=== PATIENT | male | born 1950 | race Caucasian/White ===

== ENCOUNTER 2016-09-03 11:15 | Emergency (ER) | payer MEDICARE, BC ==
--- NOTE | 2016-09-03 11:31 | Emergency Department Record ---
History of Present Illness - General Chief complaint: Extremity Problem Stated complaint: CELLULITIS Time Seen by Provider: 09/03/16 11:22 Source: Patient Mode of Arrival: Ambulatory Limitations: No limitations - History of Present Illness Initial comments: 66 yo male presents with redness and swelling of the right ankle and foot. This started about a week ago. He was seen in the [facility] on 08/31. He was started on Keflex and Bactrim but noted the area was expanding. PCP is Dr Parra. XR demonstrated an equivocal medial malleolus fracture on 08/31. he denies any trauma, no gout, no fevers, no significant pain with ROM. MD Complaint: Extremity pain, Extremity swelling Onset/Timin -: Days(s) Location: Right, Ankle, Foot History of Same: No Radiation: None Consistency: Constant Improves with: Nothing Worsens with: Walking, Weight bearing Associated Symptoms: Denies other symptoms - Related Data Home Medications Medication Instructions Recorded Confirmed Last Taken Atenolol [Tenormin] 50 mg PO DAILY 10/05/14 09/03/16 10/09/14 Escitalopram Oxalate [Lexapro] 20 mg PO DAILY 10/05/14 09/03/16 10/09/14 Primidone [Mysoline] 250 mg PO BID 10/05/14 09/03/16 10/09/14 Alprazolam [Xanax] 0.25 mg PO TID tab 06/21/16 09/03/16 Unknown Phenytoin Sodium Extended 200 mg PO BID cap 06/21/16 09/03/16 Unknown [Dilantin] Omeprazole Magnesium [Prilosec] 20 mg PO BID packet 08/31/16 09/03/16 Unknown Previous Rx's Medication Instructions Recorded Clindamycin HCl [Cleocin HCl] 300 mg PO QID #28 capsule 09/03/16 Allergies Allergy/AdvReac Type Severity Reaction Status Date / Time aspirin Allergy Severe PT UNSURE Verified 09/03/16 11:25 OF REACTION diphenhydramine HCl Allergy Severe DIFFICULTY Verified 09/03/16 11:25 [From BENADRYL] BREATHING NSAIDS (Non-Steroidal Allergy Severe PT UNSURE Verified 09/03/16 11:25 Anti-Inflamma OF REACTION Pyrazoles Allergy Severe PT UNSURE Verified 09/03/16 11:25 OF REACTION Salicylates * Allergy Severe PT UNSURE Verified 09/03/16 11:25 [Salicylates OF REACTION *RETIRED-01/13/16] codeine Allergy Intermediate ABDOMINAL Verified 09/03/16 11:25 PAIN Travel Screening - Travel/Exposure Within Last 30 Days Have you traveled within the last 30 days?: No Review of Systems Constitutional: Denies: Chills, Fever, Malaise, Weakness Eyes: Denies: Eye discharge, Eye pain, Photophobia, Vision change ENT: Denies: Congestion, Throat pain Respiratory: Denies: Cough, Dyspnea, Hemoptysis, Stridor, Wheezes Cardiovascular: Denies: Chest pain, Palpitations, Syncope Endocrine: Denies: Fatigue Gastrointestinal: Denies: Abdominal pain, Diarrhea, Nausea, Vomiting Genitourinary: Denies: Hematuria, Urgency Musculoskeletal: Reports: Arthralgia, Joint swelling Skin: Reports: Change in color, Rash Neurological: Denies: Headache Psychiatric: Denies: Anxiety Hematological/Lymphatic: Denies: Blood Clots, Easy bleeding, Easy bruising, Swollen glands Past Medical History - SOCIAL HISTORY Smoking Status: Never smoker Alcohol Use: None Drug Use: None - RESPIRATORY Hx Respiratory Disorders: No - CARDIOVASCULAR Hx Cardio Disorders: No - NEURO Hx Neuro Disorders: Yes Hx CVA: Yes (AVOM) Hx Seizures: Yes - GI Hx GI Disorders: No - Hx Genitourinary Disorders: No - ENDOCRINE Hx Endocrine Disorders: No - MUSCULOSKELETAL Hx Musculoskeletal Disorders: Yes Hx Arthritis: Yes (Hips) - PSYCH Hx Psych Problems: Yes Hx Anxiety: Yes Hx Depression: Yes - HEMATOLOGY/ONCOLOGY Hx Hematology/Oncology Disorders: No Family Medical History Any Significant Family History?: Yes Hx Anxiety: Children Hx Dementia: Father Hx Depression: Brother/Sister Hx Diabetes: Mother Hx Heart Disease: Mother Hx HTN: Mother, Brother/Sister Hx Kidney Disease: Mother Hx Stroke: Father Physical Exam - General General Appearance: Alert, Oriented x3, Cooperative, No acute distress Limitations: No limitations - Head Head exam: Atraumatic, Normal inspection - Eye Eye exam: Normal appearance, PERRL. negative: Periorbital swelling - ENT ENT exam: Normal exam Ear exam: Normal external inspection Nasal Exam: Normal inspection Mouth exam: Normal external inspection Teeth exam: Normal inspection Throat exam: Normal inspection - Neck Neck exam: Normal inspection, Full ROM. negative: Lymphadenopathy, Tenderness - Respiratory Respiratory exam: Normal lung sounds bilaterally. negative: Respiratory distress - Cardiovascular Cardiovascular Exam: Regular rate, Normal rhythm, Normal heart sounds - GI/Abdominal GI/Abdominal exam: Soft - Rectal Rectal exam: Deferred - exam: Deferred - Extremities Extremities exam: Pedal edema (mild swelling of the right foot and ankle, erythema, full ROM without pain of the ankle and foot, intact skin, no blisters or signs of skin breakdown.), Tenderness - Back Back exam: Denies: CVA tenderness (R), CVA tenderness (L) - Neurological Neurological exam: Alert, Oriented X3 - Psychiatric Psychiatric exam: Normal affect, Normal mood. negative: Agitated, Anxious - Skin Skin exam: Erythema (medial and lateral ankke, medial and lateral, and dorasal foot) Course Vital Signs 09/03/16 11:20 Temperature 97.3 F L Pulse Rate 75 Respiratory 20 Rate Blood Pressure 130/80 Pulse Ox 98 - Reevaluation(s) Reevaluation #1: The CBC was reviewed No acute changes 09/03/16 12:11 Reevaluation #2: Remaining labs reviewed ESR normal at 18 CRP 5.6 DC with [facility] instructions We discussed reasons to return and close follow up Tuesday with PCP 09/03/16 12:38 Medical Decision Making - Lab Data Result diagrams: 09/03/16 11:50 09/03/16 11:50 Disposition Disposition: Discharge Clinical Impression: Cellulitis Qualifiers: Site of cellulitis: extremity Site of cellulitis of extremity: lower extremity Laterality: right Qualified Code(s): L03.115 - Cellulitis of right lower limb Disposition: Home, Self-Care Condition: (1) Good Instructions: Cellulitis (ED) Additional Instructions: Avoid walking or weight bearing this Keep the leg elevated at all times Return to the ER if worse beyond the lines we marked for return Stop the Keflex and Bactrim and start the Clindamycin Motrin for mild pain Follow up as scheduled Tuesday with Dr Parra Prescriptions: Clindamycin HCl [Cleocin HCl] 300 mg PO QID #28 capsule Forms: Patient Portal Access Time of Disposition: 12:39
[2016-09-03] MEDS ORDERED: CLINDAMYCIN 600MG/50ML PREMIX 600 MG in DEXTROSE 1 BAG IV ONE (11:34)
[2016-09-03] MEDS ORDERED: CLINDAMYCIN 600MG/4ML VIAL 600 MG in 0.9 % SODIUM CHLORIDE 100ML 100 ML IV ONE (11:54)
[2016-09-03 12:01] LABS: HEMATOCRIT 40.3 % (42.0-52.0); MEAN CORPUSCULAR HEMOGLOBIN 34.3 pg (27-33); MEAN CORPUSCULAR HGB CONC 34.7 g/dl (32-36); MEAN PLATELET VOLUME 9.5 fl (7.4-10.4); PLATELET COUNT 248 K/uL (130-400); RED BLOOD COUNT 4.07 M/uL (4.40-5.70); RED CELL DISTRIBUTION WIDTH 13.9 % (11.5-14.5); WHITE BLOOD COUNT W/O DIFF 4.9 K/uL (4.2-12.2)
[2016-09-03 12:16] LABS: ANION GAP 16.6 (7-16); BLOOD UREA NITROGEN 13 mg/dL (9-20); C-REACTIVE PROTEIN 5.6 mg/dL (0.0-0.9); CARBON DIOXIDE 25.4 mmol/L (22-30); CREATININE 0.7 mg/dL (0.66-1.25); EST GLOMERULAR FILTRATION RATE > 60 ml/min; GLUCOSE,RANDOM 105 mg/dL (70-110)
[2016-09-03 12:37] LABS: ERYTHROCYTE SEDIMENTATION RATE 18 mm/hr (0-20)
== END 2016-09-03 13:05 | disposition home or self-care (01) ==
LOC: ER 11:15
DX: L03.115 Cellulitis of right lower limb (principal)
CPT/HCPCS: 80048; 84550; 85027; 85651; 86140; 96365; 99284

== ENCOUNTER 2018-04-29 13:15 | Emergency (ER) | payer MEDICARE ==
[2018-04-29 14:57] LABS: BASO % 0.4 % (0-6); EOS % 2.5 % (0-6); GRAN % 71.4 % (47-80); HEMATOCRIT 43.3 % (42.0-52.0); LYMPH % 12.4 % (16-45); MEAN CELL VOLUME 98.9 fl (81-97); MEAN CORPUSCULAR HEMOGLOBIN 34.2 pg (27-33); MEAN CORPUSCULAR HGB CONC 34.6 g/dl (32-36); MEAN PLATELET VOLUME 9.4 fl (7.4-10.4); MONO % 13.3 % (0-9); PLATELET COUNT 203 K/uL (130-400); RED BLOOD COUNT 4.38 M/uL (4.40-5.70); RED CELL DISTRIBUTION WIDTH 13.8 % (11.5-14.5); WHITE BLOOD COUNT W/O DIFF 5.2 K/uL (4.2-12.2)
[2018-04-29 15:16] LABS: BLOOD UREA NITROGEN 10 mg/dL (8-23); CREATININE 0.7 mg/dL (0.7-1.2); EST GLOMERULAR FILTRATION RATE > 60 mL/min; GLUCOSE,RANDOM 101 mg/dL (74-109); PHENYTOIN (DILANTIN) 11.6 ug/mL (10.0-20.0)
[2018-04-29 15:32] LABS: ERYTHROCYTE SEDIMENTATION RATE 12 mm/hr (0-20)
[2018-04-29] MEDS ORDERED: HYDROCODONE/APAP 5/325MG TABLET PO ONE (15:53)
--- NOTE | 2018-04-29 16:21 | Emergency Department Record ---
History of Present Illness - General Chief complaint: Extremity Problem Stated complaint: SWELLING ON RT WRIST Time Seen by Provider: 04/29/18 14:29 Source: Patient Mode of Arrival: Ambulatory Limitations: No limitations - History of Present Illness Initial comments: pt has pain and swelling in his right wrist with erythema Complaint: Extremity pain, Extremity swelling, Joint pain, Joint swelling Onset/Timin -: Days(s) Location: Right, Forearm History of Same: Yes Radiation: None Severity scale (1-10): 6 Quality: Aching Consistency: Constant, Intermittent Improves with: Nothing Worsens with: Exertion - Related Data Previous Rx's Medication Instructions Recorded Cephalexin [Keflex] 500 mg PO QID #40 cap 04/29/18 Allergies Allergy/AdvReac Type Severity Reaction Status Date / Time aspirin Allergy Severe PT UNSURE Verified 04/29/18 13:38 OF REACTION diphenhydramine HCl Allergy Severe DIFFICULTY Verified 04/29/18 13:38 [From BENADRYL] BREATHING NSAIDS (Non-Steroidal Allergy Severe PT UNSURE Verified 04/29/18 13:38 Anti-Inflamma OF REACTION Pyrazoles Allergy Severe PT UNSURE Verified 04/29/18 13:38 OF REACTION Salicylates * Allergy Severe PT UNSURE Verified 04/29/18 13:38 [Salicylates OF REACTION *RETIRED-01/13/16] codeine Allergy Intermediate ABDOMINAL Verified 04/29/18 13:38 PAIN Travel Screening - Travel/Exposure Within Last 30 Days Have you traveled within the last 30 days?: No - Travel/Exposure Within Last Year Have you traveled outside the [place] in the last year?: No - Additonal Travel Details Have you been exposed to anyone with a communicable illness?: No - Travel Symptoms Symptom Screening: None Review of Systems Reviewed: No additional complaints except as noted below Constitutional: Reports: As per HPI. Denies: Chills, Fever, Malaise, Night sweats, Weakness, Weight change Eyes: Reports: As per HPI. Denies: Eye discharge, Eye pain, Photophobia, Vision change ENT: Reports: As per HPI. Denies: Congestion, Dental pain, Ear pain, Epistaxis , Hearing loss, Throat pain Respiratory: Reports: As per HPI. Denies: Cough, Dyspnea, Hemoptysis, Stridor, Wheezes Cardiovascular: Reports: As per HPI. Denies: Arrhythmia, Chest pain, Dyspnea on exertion, Edema, Murmurs, Orthopnea, Palpitations, Paroxysmal nocturnal dyspnea, Rheumatic Fever, Syncope Endocrine: Reports: As per HPI. Denies: Fatigue, Heat or cold intolerance, Polydipsia, Polyuria Gastrointestinal: Reports: As per HPI. Denies: Abdominal pain, Constipation, Diarrhea, Hematemesis, Hematochezia, Melena, Nausea, Vomiting Genitourinary: Reports: As per HPI. Denies: Dysuria, Frequency, Hematuria, Incontinence, Retention, Testicular pain, Testicular mass, Urgency Musculoskeletal: Reports: As per HPI. Denies: Arthralgia, Back pain, Gout, Joint swelling, Myalgia, Neck pain Skin: Reports: As per HPI. Denies: Bruising, Change in color, Change in hair/ nails, Lesions, Pruritus, Rash Neurological: Reports: As per HPI. Denies: Abnormal gait, Confusion, Headache, Numbness, Paresthesias, Seizure, Tingling, Tremors, Vertigo, Weakness Psychiatric: Reports: As per HPI. Denies: Anxiety, Auditory hallucinations, Depression, Homicidal thoughts, Suicidal thoughts, Visual hallucinations Hematological/Lymphatic: Reports: As per HPI. Denies: Anemia, Blood Clots, Easy bleeding, Easy bruising, Swollen glands Past Medical History - SOCIAL HISTORY Smoking Status: Never smoker Alcohol Use: None Drug Use: None - RESPIRATORY Hx Respiratory Disorders: No - CARDIOVASCULAR Hx Cardio Disorders: No - NEURO Hx Neuro Disorders: Yes Hx CVA: Yes (AVOM) Hx Seizures: Yes (last petit 1977) - GI Hx GI Disorders: No - Hx Genitourinary Disorders: No - ENDOCRINE Hx Endocrine Disorders: No - MUSCULOSKELETAL Hx Musculoskeletal Disorders: Yes Hx Arthritis: Yes (Hips) - PSYCH Hx Psych Problems: Yes Hx Anxiety: Yes Hx Depression: Yes - HEMATOLOGY/ONCOLOGY Hx Hematology/Oncology Disorders: No Family Medical History Any Significant Family History?: Yes Hx Anxiety: Children Hx Dementia: Father Hx Depression: Brother/Sister Hx Diabetes: Mother Hx Heart Disease: Mother Hx HTN: Mother, Brother/Sister Hx Kidney Disease: Mother Hx Stroke: Father Physical Exam - General General Appearance: Alert, Oriented x3, Cooperative, Mild distress - Head Head exam: Normal inspection - Eye Eye exam: Normal appearance, PERRL, EOMI Pupils: Normal accommodation - ENT ENT exam: Normal exam, Mucous membranes moist, Normal external ear exam, Normal orophraynx Ear exam: Normal external inspection. negative: External canal tenderness Nasal Exam: Normal inspection. negative: Discharge, Sinus tenderness Mouth exam: Normal external inspection, Tongue normal Teeth exam: Normal inspection. negative: Dental caries Throat exam: Normal inspection. negative: Tonsillar erythema, Tonsillar exudate - Neck Neck exam: Normal inspection, Full ROM. negative: Tenderness - Respiratory Respiratory exam: Normal lung sounds bilaterally. negative: Respiratory distress - Cardiovascular Cardiovascular Exam: Regular rate, Normal rhythm, Normal heart sounds - GI/Abdominal GI/Abdominal exam: Soft, Normal bowel sounds. negative: Tenderness - Rectal Rectal exam: Deferred - exam: Deferred - Extremities Extremities exam: Normal inspection, Full ROM, Joint swelling, Normal capillary refill, Tenderness, Other (erythema r wrist) - Back Back exam: Reports: Normal inspection, Full ROM. Denies: Muscle spasm, Rash noted, Tenderness - Neurological Neurological exam: Alert, CN II-XII intact, Normal gait, Oriented X3 - Psychiatric Psychiatric exam: Normal affect, Normal mood - Skin Skin exam: Dry, Intact, Normal color, Warm Course Vital Signs 04/29/18 04/29/18 13:30 16:14 Temperature 97.5 F L 98.1 F Pulse Rate 52 L Pulse Rate [ 55 L Pulse Ox Probe] Respiratory 16 16 Rate Blood Pressure 147/77 Blood Pressure 140/76 [Left Arm] Pulse Ox 100 94 L - Reevaluation(s) Reevaluation #1: 04/29/18 16:20 gout is also a consideration but uric acid is only 4 and pt cant take nsaids Medical Decision Making - Lab Data Result diagrams: 04/29/18 14:45 04/29/18 14:45 Lab Results 04/29/18 04/29/18 04/29/18 Range/Units 14:45 14:45 14:45 WBC 5.2 (4.2-12.2) K/uL RBC 4.38 L (4.40-5.70) M/uL Hgb 15.0 (14.0-18.0) gm/dl Hct 43.3 (42.0-52.0) % MCV 98.9 H (81-97) fl MCH 34.2 H (27-33) pg MCHC 34.6 (32-36) g/dl RDW 13.8 (11.5-14.5) % Plt Count 203 (130-400) K/uL MPV 9.4 (7.4-10.4) fl Gran % 71.4 (47-80) % Lymphocytes % 12.4 L (16-45) % Monocytes % 13.3 H (0-9) % Eosinophils % 2.5 (0-6) % Basophils % 0.4 (0-6) % ESR 12 (0-20) mm/hr Sodium 139 (136-145) mmol/L Potassium 3.6 (3.4-4.5) mmol/L Chloride 98 (98-107) mmol/L Carbon Dioxide 31.0 H (22-29) mmol/L Anion Gap 10.0 (7-16) BUN 10 (8-23) mg/dL Creatinine 0.7 (0.7-1.2) mg/dL Estimated GFR > 60 mL/min Random Glucose 101 (74-109) mg/dL Uric Acid 4.00 (3.4-7.0) mg/dL Calcium 9.3 (8.8-10.2) mg/dL Magnesium (1.6-2.4) mg/dL Phenytoin 11.6 (10.0-20.0) ug/mL 04/29/18 Range/Units 14:45 WBC (4.2-12.2) K/uL RBC (4.40-5.70) M/uL Hgb (14.0-18.0) gm/dl Hct (42.0-52.0) % MCV (81-97) fl MCH (27-33) pg MCHC (32-36) g/dl RDW (11.5-14.5) % Plt Count (130-400) K/uL MPV (7.4-10.4) fl Gran % (47-80) % Lymphocytes % (16-45) % Monocytes % (0-9) % Eosinophils % (0-6) % Basophils % (0-6) % ESR (0-20) mm/hr Sodium (136-145) mmol/L Potassium (3.4-4.5) mmol/L Chloride (98-107) mmol/L Carbon Dioxide (22-29) mmol/L Anion Gap (7-16) BUN (8-23) mg/dL Creatinine (0.7-1.2) mg/dL Estimated GFR mL/min Random Glucose (74-109) mg/dL Uric Acid (3.4-7.0) mg/dL Calcium (8.8-10.2) mg/dL Magnesium 1.8 (1.6-2.4) mg/dL Phenytoin (10.0-20.0) ug/mL Disposition Disposition: Discharge Clinical Impression: Cellulitis of wrist Disposition: Home, Self-Care Condition: (1) Good Instructions: Cellulitis (ED) Additional Instructions: follow up with family doctor. return sooner if worse. moist heat and elevation Prescriptions: Cephalexin [Keflex] 500 mg PO QID #40 cap Quality - Quality Measures Quality Measures: N/A - Blood Pressure Screening Does Patient Have Any of the Following: Active Dx of HTN Blood Pressure Classification: Hypertensive Reading Systolic Measurement: 147 Diastolic Measurement: 77 Screening for High Blood Pressure: Patient Exclusion, Hx of HTN [G9744]
--- NOTE | 2018-04-29 16:28 | Emergency Department Record ---
History of Present Illness - General Chief complaint: Extremity Problem Stated complaint: SWELLING ON RT WRIST Time Seen by Provider: 04/29/18 14:29 Source: Patient Mode of Arrival: Ambulatory Limitations: No limitations - History of Present Illness Onset/Timin -: Days(s) Location: Right, Forearm History of Same: Yes Radiation: None Severity scale (1-10): 6 Quality: Aching Consistency: Constant, Intermittent Improves with: Nothing Worsens with: Exertion - Related Data Previous Rx's Medication Instructions Recorded Cephalexin [Keflex] 500 mg PO QID #40 cap 04/29/18 Hydrocodone/APAP 5/325Mg [[place] 1 each PO Q6H #10 tab 04/29/18 5Mg/325Mg] Allergies Allergy/AdvReac Type Severity Reaction Status Date / Time aspirin Allergy Severe PT UNSURE Verified 04/29/18 13:38 OF REACTION diphenhydramine HCl Allergy Severe DIFFICULTY Verified 04/29/18 13:38 [From BENADRYL] BREATHING NSAIDS (Non-Steroidal Allergy Severe PT UNSURE Verified 04/29/18 13:38 Anti-Inflamma OF REACTION Pyrazoles Allergy Severe PT UNSURE Verified 04/29/18 13:38 OF REACTION Salicylates * Allergy Severe PT UNSURE Verified 04/29/18 13:38 [Salicylates OF REACTION *RETIRED-01/13/16] codeine Allergy Intermediate ABDOMINAL Verified 04/29/18 13:38 PAIN Travel Screening - Travel/Exposure Within Last 30 Days Have you traveled within the last 30 days?: No - Travel/Exposure Within Last Year Have you traveled outside the [place] in the last year?: No - Additonal Travel Details Have you been exposed to anyone with a communicable illness?: No - Travel Symptoms Symptom Screening: None Review of Systems Constitutional: Reports: As per HPI. Denies: Chills, Fever, Malaise, Night sweats, Weakness, Weight change Eyes: Reports: As per HPI. Denies: Eye discharge, Eye pain, Photophobia, Vision change ENT: Reports: As per HPI. Denies: Congestion, Dental pain, Ear pain, Epistaxis , Hearing loss, Throat pain Respiratory: Reports: As per HPI. Denies: Cough, Dyspnea, Hemoptysis, Stridor, Wheezes Cardiovascular: Reports: As per HPI. Denies: Arrhythmia, Chest pain, Dyspnea on exertion, Edema, Murmurs, Orthopnea, Palpitations, Paroxysmal nocturnal dyspnea, Rheumatic Fever, Syncope Endocrine: Reports: As per HPI. Denies: Fatigue, Heat or cold intolerance, Polydipsia, Polyuria Gastrointestinal: Reports: As per HPI. Denies: Abdominal pain, Constipation, Diarrhea, Hematemesis, Hematochezia, Melena, Nausea, Vomiting Genitourinary: Reports: As per HPI. Denies: Dysuria, Frequency, Hematuria, Incontinence, Retention, Testicular pain, Testicular mass, Urgency Musculoskeletal: Reports: As per HPI. Denies: Arthralgia, Back pain, Gout, Joint swelling, Myalgia, Neck pain Skin: Reports: As per HPI. Denies: Bruising, Change in color, Change in hair/ nails, Lesions, Pruritus, Rash Neurological: Reports: As per HPI. Denies: Abnormal gait, Confusion, Headache, Numbness, Paresthesias, Seizure, Tingling, Tremors, Vertigo, Weakness Psychiatric: Reports: As per HPI. Denies: Anxiety, Auditory hallucinations, Depression, Homicidal thoughts, Suicidal thoughts, Visual hallucinations Hematological/Lymphatic: Reports: As per HPI. Denies: Anemia, Blood Clots, Easy bleeding, Easy bruising, Swollen glands Past Medical History - SOCIAL HISTORY Smoking Status: Never smoker Alcohol Use: None Drug Use: None - RESPIRATORY Hx Respiratory Disorders: No - CARDIOVASCULAR Hx Cardio Disorders: No - NEURO Hx Neuro Disorders: Yes Hx CVA: Yes (AVOM) Hx Seizures: Yes (last petit 1977) - GI Hx GI Disorders: No - Hx Genitourinary Disorders: No - ENDOCRINE Hx Endocrine Disorders: No - MUSCULOSKELETAL Hx Musculoskeletal Disorders: Yes Hx Arthritis: Yes (Hips) - PSYCH Hx Psych Problems: Yes Hx Anxiety: Yes Hx Depression: Yes - HEMATOLOGY/ONCOLOGY Hx Hematology/Oncology Disorders: No Family Medical History Any Significant Family History?: Yes Hx Anxiety: Children Hx Dementia: Father Hx Depression: Brother/Sister Hx Diabetes: Mother Hx Heart Disease: Mother Hx HTN: Mother, Brother/Sister Hx Kidney Disease: Mother Hx Stroke: Father Physical Exam - General Limitations: No limitations Course Vital Signs 04/29/18 04/29/18 13:30 16:14 Temperature 97.5 F L 98.1 F Pulse Rate 52 L Pulse Rate [ 55 L Pulse Ox Probe] Respiratory 16 16 Rate Blood Pressure 147/77 Blood Pressure 140/76 [Left Arm] Pulse Ox 100 94 L Medical Decision Making - Lab Data Result diagrams: 04/29/18 14:45 04/29/18 14:45 Lab Results 04/29/18 04/29/18 04/29/18 Range/Units 14:45 14:45 14:45 WBC 5.2 (4.2-12.2) K/uL RBC 4.38 L (4.40-5.70) M/uL Hgb 15.0 (14.0-18.0) gm/dl Hct 43.3 (42.0-52.0) % MCV 98.9 H (81-97) fl MCH 34.2 H (27-33) pg MCHC 34.6 (32-36) g/dl RDW 13.8 (11.5-14.5) % Plt Count 203 (130-400) K/uL MPV 9.4 (7.4-10.4) fl Gran % 71.4 (47-80) % Lymphocytes % 12.4 L (16-45) % Monocytes % 13.3 H (0-9) % Eosinophils % 2.5 (0-6) % Basophils % 0.4 (0-6) % ESR 12 (0-20) mm/hr Sodium 139 (136-145) mmol/L Potassium 3.6 (3.4-4.5) mmol/L Chloride 98 (98-107) mmol/L Carbon Dioxide 31.0 H (22-29) mmol/L Anion Gap 10.0 (7-16) BUN 10 (8-23) mg/dL Creatinine 0.7 (0.7-1.2) mg/dL Estimated GFR > 60 mL/min Random Glucose 101 (74-109) mg/dL Uric Acid 4.00 (3.4-7.0) mg/dL Calcium 9.3 (8.8-10.2) mg/dL Magnesium (1.6-2.4) mg/dL Phenytoin 11.6 (10.0-20.0) ug/mL 04/29/18 Range/Units 14:45 WBC (4.2-12.2) K/uL RBC (4.40-5.70) M/uL Hgb (14.0-18.0) gm/dl Hct (42.0-52.0) % MCV (81-97) fl MCH (27-33) pg MCHC (32-36) g/dl RDW (11.5-14.5) % Plt Count (130-400) K/uL MPV (7.4-10.4) fl Gran % (47-80) % Lymphocytes % (16-45) % Monocytes % (0-9) % Eosinophils % (0-6) % Basophils % (0-6) % ESR (0-20) mm/hr Sodium (136-145) mmol/L Potassium (3.4-4.5) mmol/L Chloride (98-107) mmol/L Carbon Dioxide (22-29) mmol/L Anion Gap (7-16) BUN (8-23) mg/dL Creatinine (0.7-1.2) mg/dL Estimated GFR mL/min Random Glucose (74-109) mg/dL Uric Acid (3.4-7.0) mg/dL Calcium (8.8-10.2) mg/dL Magnesium 1.8 (1.6-2.4) mg/dL Phenytoin (10.0-20.0) ug/mL Disposition Clinical Impression: Cellulitis of wrist Disposition: Home, Self-Care Condition: (1) Good Instructions: Cellulitis (ED) Additional Instructions: follow up with family doctor. return sooner if worse. moist heat and elevation Prescriptions: Cephalexin [Keflex] 500 mg PO QID #40 cap Hydrocodone/APAP 5/325Mg [[place] 5Mg/325Mg] 1 each PO Q6H #10 tab Forms: Patient Portal Access Quality - Quality Measures Quality Measures: N/A - Blood Pressure Screening Does Patient Have Any of the Following: Active Dx of HTN Blood Pressure Classification: Hypertensive Reading Systolic Measurement: 147 Diastolic Measurement: 77 Screening for High Blood Pressure: Patient Exclusion, Hx of HTN [G9744]
--- NOTE | 2018-05-02 06:14 | RADIOLOGY REPORT ---
EXAM: RIGHT WRIST HISTORY: RIGHT WRIST PAIN FOR THE PAST FOUR DAYS. NO KNOWN INJURY. TECHNIQUE: Three views of the right wrist were obtained. Comparison: 05/25/12. FINDINGS: The bones appear intact. There is no visible acute fracture or dislocation. Arthritic changes are present at the distal radial ulnar joint. There is chondrocalcinosis within the distal radial ulnar joint and triangular fibrocartilage complex. Chondrocalcinosis is also noted along the volar aspect of the radial carpal compartment. These findings have progressed when compared to the prior study. There is no visible acute fracture or dislocation. There are no osseous erosions. There are mild arthritic changes of the first carpal metacarpal joint. There is diffuse soft tissue swelling within the wrist. There is no foreign body of soft tissue air. IMPRESSION: 1. PROGRESSIVE DEGENERATIVE CHANGES AND CHONDROCALCINOSIS. 2. NO ACUTE OSSEOUS ABNORMALITY. JOB NUMBER: [id number] MTDD
== END 2018-04-29 16:33 | disposition home or self-care (01) ==
LOC: ER 13:15
DX: L03.113 Cellulitis of right upper limb (principal)
CPT/HCPCS: 80048; 80185; 83735; 84550; 85025; 85651; 99283; 99284

== ENCOUNTER 2018-05-03 12:30 | Inpatient (IN) | payer MEDICARE ==
--- NOTE | 2018-05-03 13:01 | Emergency Department Record ---
History of Present Illness - General Chief complaint: Extremity Problem Stated complaint: RT ARM SWELLING/PAIN Time Seen by Provider: 05/03/18 12:45 Source: Patient, RN notes reviewed Mode of Arrival: Ambulatory - History of Present Illness Initial comments: swollen right hand and wrist and was seen at [facility] ED 4 days ago with a diagnosis of cellulitis and placed on keflex and the right hand and wrist is more swollen and swelling up to the elbow. Patient has failed outpatient treatment. MD Complaint: Extremity pain, Extremity swelling Onset/Timin -: Week(s) Location: Right, Arm History of Same: No Consistency: Constant Improves with: Medication Worsens with: Exertion Associated Symptoms: Denies other symptoms - Related Data Previous Rx's Medication Instructions Recorded Cephalexin [Keflex] 500 mg PO QID #40 cap 04/29/18 Hydrocodone/APAP 5/325Mg [[place] 1 each PO Q6H #10 tab 04/29/18 5Mg/325Mg] Allergies Allergy/AdvReac Type Severity Reaction Status Date / Time aspirin Allergy Severe PT UNSURE Verified 05/03/18 12:36 OF REACTION diphenhydramine HCl Allergy Severe DIFFICULTY Verified 05/03/18 12:36 [From BENADRYL] BREATHING NSAIDS (Non-Steroidal Allergy Severe PT UNSURE Verified 05/03/18 12:36 Anti-Inflamma OF REACTION Pyrazoles Allergy Severe PT UNSURE Verified 05/03/18 12:36 OF REACTION Salicylates * Allergy Severe PT UNSURE Verified 05/03/18 12:36 [Salicylates OF REACTION *RETIRED-01/13/16] codeine Allergy Intermediate ABDOMINAL Verified 05/03/18 12:36 PAIN Travel Screening - Travel/Exposure Within Last 30 Days Have you traveled within the last 30 days?: No - Travel/Exposure Within Last Year Have you traveled outside the [place] in the last year?: No - Additonal Travel Details Have you been exposed to anyone with a communicable illness?: No - Travel Symptoms Symptom Screening: None Review of Systems Reviewed: No additional complaints except as noted below Constitutional: Reports: As per HPI. Denies: Chills, Fever, Malaise, Night sweats, Weakness, Weight change Eyes: Reports: As per HPI. Denies: Eye discharge, Eye pain, Photophobia, Vision change ENT: Reports: As per HPI. Denies: Congestion, Dental pain, Ear pain, Epistaxis , Hearing loss, Throat pain Respiratory: Reports: As per HPI. Denies: Cough, Dyspnea, Hemoptysis, Stridor, Wheezes Cardiovascular: Reports: As per HPI. Denies: Arrhythmia, Chest pain, Dyspnea on exertion, Edema, Murmurs, Orthopnea, Palpitations, Paroxysmal nocturnal dyspnea, Rheumatic Fever, Syncope Endocrine: Reports: As per HPI. Denies: Fatigue, Heat or cold intolerance, Polydipsia, Polyuria Gastrointestinal: Reports: As per HPI. Denies: Abdominal pain, Constipation, Diarrhea, Hematemesis, Hematochezia, Melena, Nausea, Vomiting Genitourinary: Reports: As per HPI. Denies: Dysuria, Frequency, Hematuria, Incontinence, Retention, Testicular pain, Testicular mass, Urgency Musculoskeletal: Reports: As per HPI. Denies: Arthralgia, Back pain, Gout, Joint swelling, Myalgia, Neck pain Skin: Reports: As per HPI. Denies: Bruising, Change in color, Change in hair/ nails, Lesions, Pruritus, Rash Neurological: Reports: As per HPI. Denies: Abnormal gait, Confusion, Headache, Numbness, Paresthesias, Seizure, Tingling, Tremors, Vertigo, Weakness Psychiatric: Reports: As per HPI. Denies: Anxiety, Auditory hallucinations, Depression, Homicidal thoughts, Suicidal thoughts, Visual hallucinations Hematological/Lymphatic: Reports: As per HPI. Denies: Anemia, Blood Clots, Easy bleeding, Easy bruising, Swollen glands Past Medical History - SOCIAL HISTORY Smoking Status: Never smoker Alcohol Use: None Drug Use: None - RESPIRATORY Hx Respiratory Disorders: No - CARDIOVASCULAR Hx Cardio Disorders: No - NEURO Hx Neuro Disorders: Yes Hx CVA: Yes (AVOM) Hx Seizures: Yes (last petit 1977) - GI Hx GI Disorders: No - Hx Genitourinary Disorders: No - ENDOCRINE Hx Endocrine Disorders: No - MUSCULOSKELETAL Hx Musculoskeletal Disorders: Yes Hx Arthritis: Yes (Hips) - PSYCH Hx Psych Problems: Yes Hx Anxiety: Yes Hx Depression: Yes - HEMATOLOGY/ONCOLOGY Hx Hematology/Oncology Disorders: No Family Medical History Any Significant Family History?: Yes Hx Anxiety: Children Hx Dementia: Father Hx Depression: Brother/Sister Hx Diabetes: Mother Hx Heart Disease: Mother Hx HTN: Mother, Brother/Sister Hx Kidney Disease: Mother Hx Stroke: Father Physical Exam - General General Appearance: Alert, Oriented x3, Cooperative, Mild distress - Head Head exam: Normal inspection - Eye Eye exam: Normal appearance, PERRL Pupils: Normal accommodation - ENT ENT exam: Normal exam, Mucous membranes moist, Normal external ear exam, Normal orophraynx, TM's normal bilaterally Ear exam: Normal external inspection. negative: External canal tenderness Nasal Exam: Normal inspection. negative: Discharge, Sinus tenderness Mouth exam: Normal external inspection, Tongue normal Teeth exam: Normal inspection. negative: Dental caries Throat exam: Normal inspection. negative: Tonsillar erythema, Tonsillar exudate - Neck Neck exam: Normal inspection, Full ROM. negative: Tenderness - Respiratory Respiratory exam: Normal lung sounds bilaterally. negative: Respiratory distress - Cardiovascular Cardiovascular Exam: Regular rate, Normal rhythm, Normal heart sounds - GI/Abdominal GI/Abdominal exam: Soft, Normal bowel sounds. negative: Tenderness - Rectal Rectal exam: Deferred - exam: Deferred - Extremities Extremities exam: Normal inspection, Full ROM, Normal capillary refill, Tenderness (rigth wrist and hand and forearm swelling) - Back Back exam: Reports: Normal inspection, Full ROM. Denies: Muscle spasm, Rash noted, Tenderness - Neurological Neurological exam: Alert, Normal gait, Oriented X3, Reflexes normal - Psychiatric Psychiatric exam: Normal affect, Normal mood - Skin Skin exam: Dry, Intact, Normal color, Warm Course Vital Signs 05/03/18 12:37 Temperature 98 F Pulse Rate 74 Respiratory 18 Rate Blood Pressure 138/79 Pulse Ox 95 - Reevaluation(s) Reevaluation #1: discussed case with Dr. Mares and will admit for IV vancomycin and one dose of solu-medrol given in the ED 05/03/18 15:11 Medical Decision Making - Data Complexity MDM Data: Labs Ordered and/or Reviewed (c-reactive protein 15.6), X-Ray Ordered and/or Reviewed (reviewed wrist xray done on tuesday neg for fractures) - Lab Data Result diagrams: 05/03/18 13:10 05/03/18 13:10 Disposition Clinical Impression: Cellulitis Qualifiers: Site of cellulitis: extremity Site of cellulitis of extremity: upper extremity Laterality: right Qualified Code(s): L03.113 - Cellulitis of right upper limb Decision to Admit: Admit from ER Condition: (1) Good Forms: Patient Portal Access Time of Disposition: 15:12 Quality - Quality Measures Quality Measures: N/A - Blood Pressure Screening Does Patient Have Any of the Following: No, Active Dx of HTN Blood Pressure Classification: Pre-Hypertensive BP Reading Systolic Measurement: 138 Diastolic Measurement: 79 Screening for High Blood Pressure: Patient Exclusion, Hx of HTN [[id number]]
[2018-05-03 13:13] LABS: BASO % 0.3 % (0-6); EOS % 2.3 % (0-6); GRAN % 73.7 % (47-80); HEMATOCRIT 40.8 % (42.0-52.0); HEMOGLOBIN 14.4 gm/dl (14.0-18.0); MEAN CELL VOLUME 98.1 fl (81-97); MEAN CORPUSCULAR HEMOGLOBIN 34.6 pg (27-33); MEAN CORPUSCULAR HGB CONC 35.3 g/dl (32-36); MEAN PLATELET VOLUME 9.1 fl (7.4-10.4); MONO % 14.7 % (0-9); PLATELET COUNT 242 K/uL (130-400); RED BLOOD COUNT 4.16 M/uL (4.40-5.70); RED CELL DISTRIBUTION WIDTH 13.5 % (11.5-14.5); WHITE BLOOD COUNT W/O DIFF 6.2 K/uL (4.2-12.2)
[2018-05-03 13:26] LABS: BLOOD UREA NITROGEN 10 mg/dL (8-23)
[2018-05-03 14:01] LABS: C-REACTIVE PROTEIN 15.65 mg/dL (<0.5); CREATININE 0.6 mg/dL (0.7-1.2); EST GLOMERULAR FILTRATION RATE > 60 mL/min; GLUCOSE,RANDOM 101 mg/dL (74-109)
[2018-05-03] MEDS ORDERED: METHYLPREDNISOLONE PF 125MG/VIAL IVP ONE (14:10)
[2018-05-03] MEDS ORDERED: VANCOMYCIN HCL 1,000 MG in 0.9 % SODIUM CHLORIDE 250ML 250 ML IVPB ONE (14:12)
[2018-05-03] MEDS ORDERED: ACETAMINOPHEN 325 MG TAB PO PRN (15:34)
[2018-05-03] MEDS ORDERED: 0.9 % SODIUM CHLORIDE 1000ML 1,000 ML IV PRN (15:34)
[2018-05-03] MEDS ORDERED: ALPRAZOLAM 0.25 MG TABLET PO SCH (16:00)
[2018-05-03] MEDS ORDERED: VANCOMYCIN HCL 500 MG in 0.9 % SODIUM CHLORIDE 100ML 100 ML IV ONE (16:15)
[2018-05-03] MEDS: ATENOLOL 50 MG TABLET PO SCH (16:23)
[2018-05-03] MEDS: ESCITALOPRAM 10 MG TABLET PO SCH (16:23)
[2018-05-03] MEDS ORDERED: ALPRAZOLAM 0.25 MG TABLET PO PRN (16:45)
--- NOTE | 2018-05-03 16:53 | History & Physical ---
History of Present Illness - Date of Service Date of Service for History & Physical: 05/03/18 - History of Present Illness Admitting Diagnosis: cellulitis of the right extremity hand and wrist ,. failed outpatient therapy History of Present Illness: Mr. Cardenas is a 67 y/o male with right arm pain and swelling since last Tuesday. The patient says he initially felt a sharp elbow pain which gradually radiated to his hand. He then began to notice swelling of his right hand and redness. 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 He came into the Ed on Tuesday and was started on Keflex which he has been taking but his arm did not improve. On presentation to the ED today the patient still reports stiffness, pain and swelling of the right forearm with extension to his hand. Vitals on admission: BP: 138/79 HR: RR: 18 T: 98 Sats: 95% RA Travel Screening - Travel/Exposure Within Last 30 Days Have you traveled within the last 30 days?: No - Travel/Exposure Within Last Year Have you traveled outside the [place] in the last year?: No - Additonal Travel Details Have you been exposed to anyone with a communicable illness?: No - Travel Symptoms Symptom Screening: None Review of Systems Constitutional: Reports: As per HPI. Denies: Chills, Fever, Malaise, Night sweats, Weakness, Weight change Eyes: Reports: As per HPI. Denies: Eye discharge, Eye pain, Photophobia, Vision change ENT: Reports: As per HPI. Denies: Congestion, Dental pain, Ear pain, Epistaxis , Hearing loss, Throat pain Respiratory: Reports: As per HPI. Denies: Cough, Dyspnea, Hemoptysis, Stridor, Wheezes Cardiovascular: Reports: As per HPI. Denies: Arrhythmia, Chest pain, Dyspnea on exertion, Edema, Murmurs, Orthopnea, Palpitations, Paroxysmal nocturnal dyspnea, Rheumatic Fever, Syncope Endocrine: Reports: As per HPI. Denies: Fatigue, Heat or cold intolerance, Polydipsia, Polyuria Gastrointestinal: Reports: As per HPI. Denies: Abdominal pain, Constipation, Diarrhea, Hematemesis, Hematochezia, Melena, Nausea, Vomiting Genitourinary: Reports: As per HPI. Denies: Dysuria, Frequency, Hematuria, Incontinence, Retention, Testicular pain, Testicular mass, Urgency Musculoskeletal: Reports: As per HPI. Denies: Arthralgia, Back pain, Gout, Joint swelling, Myalgia, Neck pain Skin: Reports: As per HPI. Denies: Bruising, Change in color, Change in hair/ nails, Lesions, Pruritus, Rash Neurological: Reports: As per HPI. Denies: Abnormal gait, Confusion, Headache, Numbness, Paresthesias, Seizure, Tingling, Tremors, Vertigo, Weakness Psychiatric: Reports: As per HPI. Denies: Anxiety, Auditory hallucinations, Depression, Homicidal thoughts, Suicidal thoughts, Visual hallucinations Hematological/Lymphatic: Reports: As per HPI. Denies: Anemia, Blood Clots, Easy bleeding, Easy bruising, Swollen glands Past Medical History - SOCIAL HISTORY Smoking Status: Never smoker Alcohol Use: None Drug Use: None - RESPIRATORY Hx Respiratory Disorders: No - CARDIOVASCULAR Hx Cardio Disorders: No - NEURO Hx Neuro Disorders: Yes Hx CVA: Yes (AVOM) Hx Seizures: Yes (last petit 1977) - GI Hx GI Disorders: No Hx Irritable Bowel: Yes (hx diarrhea) - Hx Genitourinary Disorders: No - ENDOCRINE Hx Endocrine Disorders: No Hx Diabetes: No Hx Thyroid Disease: No - MUSCULOSKELETAL Hx Musculoskeletal Disorders: Yes Hx Arthritis: Yes (Hips) - PSYCH Hx Psych Problems: Yes Hx Anxiety: Yes Hx Depression: Yes - HEMATOLOGY/ONCOLOGY Hx Hematology/Oncology Disorders: No Family Medical History Any Significant Family History?: Yes Hx Anxiety: Children Hx Dementia: Father Hx Depression: Brother/Sister Hx Diabetes: Mother Hx Heart Disease: Mother Hx HTN: Mother, Brother/Sister Hx Kidney Disease: Mother Hx Stroke: Father H&P Meds/Allergies - Allergies Allergies: Allergies Allergy/AdvReac Type Severity Reaction Status Date / Time aspirin Allergy Severe PT UNSURE Verified 05/03/18 12:36 OF REACTION diphenhydramine HCl Allergy Severe DIFFICULTY Verified 05/03/18 12:36 [From BENADRYL] BREATHING NSAIDS (Non-Steroidal Allergy Severe PT UNSURE Verified 05/03/18 12:36 Anti-Inflamma OF REACTION Pyrazoles Allergy Severe PT UNSURE Verified 05/03/18 12:36 OF REACTION Salicylates * Allergy Severe PT UNSURE Verified 05/03/18 12:36 [Salicylates OF REACTION *RETIRED-01/13/16] codeine Allergy Intermediate ABDOMINAL Verified 05/03/18 12:36 PAIN - Home Medications Previous Rx's Medication Instructions Recorded Cephalexin [Keflex] 500 mg PO QID #40 cap 04/29/18 Hydrocodone/APAP 5/325Mg [[place] 1 each PO Q6H #10 tab 04/29/18 5Mg/325Mg] - Active Medications Active Medications: Current Medications Acetaminophen (Tylenol 325mg) 650 mg PO Q6H PRN PRN Reason: PAIN - MILD(1-4)/FEVER Hydrocodone Bitart/Acetaminophen ([place] 5mg/325mg) 1 each PO Q6H PRN PRN Reason: PAIN - SEVERE (8-10) Alprazolam (Xanax) 0.25 mg PO TID PRN PRN Reason: ANXIETY Atenolol (Tenormin) 50 mg PO DAILY [facility] Last Admin: 05/03/18 16:23 Dose: 50 mg Cephalexin HCl (Keflex) 500 mg PO QID [facility] Stop: 05/13/18 18:01 Escitalopram Oxalate (Lexapro) 20 mg PO DAILY [facility] Last Admin: 05/03/18 16:23 Dose: 20 mg Sodium Chloride () 1,000 mls @ 25 mls/hr IV .Q24H PRN PRN Reason: LARGE VOLUME IV Last Admin: 05/03/18 16:24 Dose: 25 mls/hr Vancomycin HCl 1,000 mg/ (Dextrose) 250 mls @ 250 mls/60 min IVPB Q8H [facility] Stop: 05/08/18 22:01 Vancomycin HCl 500 mg/ Sodium (Chloride) 100 mls @ 200 mls/hr IV Q8H [facility] Non-Formulary Medication (Primidone [Mysoline]) 250 mg PO BID [facility] Non-Formulary Medication (Primidone [Mysoline]) 125 mg PO 1600 [facility] Pantoprazole Sodium (Protonix) 40 mg PO DAILYAC [facility] Phenytoin Sodium (Dilantin) 200 mg PO BID [facility] Physical Exam - Vital Signs Vital Signs: Vital Signs - Last 24 Hrs Temp Pulse Pulse Resp BP BP Pulse Ox 05/03/18 15:34 98.3 F 72 20 144/78 97 05/03/18 15:26 98.1 F 70 18 134/74 96 05/03/18 14:25 77 18 146/80 97 05/03/18 12:37 98 F 74 18 138/79 95 - General General Appearance: Alert, Oriented x3, Cooperative, Mild distress - Head Head exam: Normal inspection - Eye Eye exam: Normal appearance, PERRL Pupils: Normal accommodation - ENT ENT exam: Normal exam, Mucous membranes moist, Normal external ear exam, Normal orophraynx, TM's normal bilaterally Ear exam: Normal external inspection. negative: External canal tenderness Nasal Exam: Normal inspection. negative: Discharge, Sinus tenderness Mouth exam: Normal external inspection, Tongue normal Teeth exam: Normal inspection. negative: Dental caries Throat exam: Normal inspection. negative: Tonsillar erythema, Tonsillar exudate - Neck Neck exam: Normal inspection, Full ROM. negative: Tenderness - Respiratory Respiratory exam: Normal lung sounds bilaterally. negative: Respiratory distress - Cardiovascular Cardiovascular Exam: Regular rate, Normal rhythm, Normal heart sounds - GI/Abdominal GI/Abdominal exam: Soft, Normal bowel sounds. negative: Tenderness - Rectal Rectal exam: Deferred - exam: Deferred - Extremities Extremities exam: Normal inspection, Full ROM, Normal capillary refill, Tenderness (rigth wrist and hand and forearm swelling) - Back Back exam: Reports: Normal inspection, Full ROM. Denies: Muscle spasm, Rash noted, Tenderness - Neurological Neurological exam: Alert, Normal gait, Oriented X3, Reflexes normal - Psychiatric Psychiatric exam: Normal affect, Normal mood - Skin Skin exam: Dry, Intact, Normal color, Warm Results - Labs Result Diagrams: 05/03/18 13:10 05/03/18 13:10 Labs Last 24 Hours: Laboratory Results - last 24 hr 05/03/18 05/03/18 13:10 13:10 WBC 6.2 RBC 4.16 L Hgb 14.4 Hct 40.8 L MCV 98.1 H MCH 34.6 H MCHC 35.3 RDW 13.5 Plt Count 242 MPV 9.1 Gran % 73.7 Lymphocytes % 9.0 L Monocytes % 14.7 H Eosinophils % 2.3 Basophils % 0.3 Sodium 137 Potassium 3.7 Chloride 96 L Carbon Dioxide 25.0 Anion Gap 16.0 BUN 10 Creatinine 0.6 L Estimated GFR > 60 Random Glucose 101 Uric Acid 3.20 L Calcium 9.4 C-Reactive Protein 15.65 H VTE H&P Assessment - Risk for VTE Risk for VTE: No Risk Level: Low Risk Assessment Date: 05/03/18 Risk Assessment Time: 17:03 VTE Orders Placed or Will Be Placed: Yes Plan - Inpatient Certification Inpatient Certification: Admit to inpatient care: Based on my medical assessment, after consideration of patient's risk factors (age, co-morbidities and patient presenting symptoms and acuity), I expect that this patient will remain in the hospital greater than or equal to two midnights and that the services needed warrant inpatient care because: Patient Risk Factors: cellulitis Estimated length of stay: 48 hours The patient may reasonably be expected to be discharged or transferred to a hospital within 96 hours after admission to [facility]. Services needed: Post hospital care (if known): I certify that my determination is in accordance with my understanding of Medicare requirements for reasonable and necessary inpatient services. 05/03/18 16:55 - Detailed Diagnosis and Plan (1) Cellulitis Current Visit: Yes Status: Acute Qualifiers: Site of cellulitis: extremity Site of cellulitis of extremity: upper extremity Laterality: right Qualified Code(s): L03.113 - Cellulitis of right upper limb Base Code: L03.90 - CELLULITIS, UNSPECIFIED Comment: - 05/03/18: - Cellulitis of the right upper ext with extension to the wrist. - Pt afebrile, low white count. - Kelfex 500mg PO QID, Vancomycin 1gm Q8H - [place] 5/325mg Q6H PRN for pain. (2) Seizure disorder Current Visit: Yes Status: Acute Base Code: G40.909 - EPILEPSY, UNSP, NOT INTRACTABLE, WITHOUT STATUS EPILEPTICUS Comment: 05/03/18: - resume Primidone 20mg daily, Phenytoin 200mg BID. (3) Depression with anxiety Current Visit: Yes Status: Acute Base Code: F41.8 - OTHER SPECIFIED ANXIETY DISORDERS Comment: 05/03/18: - resume Lexapro 20mg, and Xanax 0.25mg TID PRN. (4) DVT prophylaxis Current Visit: Yes Status: Acute Base Code: [id number] - Comment: 05/03/18: - no anticoagulant. Ambulation ad yannick. (5) Full code status Current Visit: Yes Status: Acute Base Code: Z78.9 - OTHER SPECIFIED HEALTH STATUS Comment: 05/03/18: - pt is full code
[2018-05-03] MEDS: PRIMIDONE 125 MG PO SCH (17:41)
[2018-05-03] MEDS: CEPHALEXIN 500 MG CAPSULE PO SCH ×2 (17:41→21:06)
[2018-05-03] MEDS: VANCOMYCIN HCL 1,000 MG in DEXTROSE 5 % IN WATER 250 ML IVPB SCH ×2 (21:06)
[2018-05-03] MEDS: PHENYTOIN SODIUM EXTENDED 100 MG CAPSULE PO SCH (21:06)
[2018-05-03] MEDS: PRIMIDONE 250 MG PO SCH (21:06)
[2018-05-03] MEDS: VANCOMYCIN HCL 500 MG in 0.9 % SODIUM CHLORIDE 100ML 100 ML IV SCH (22:14)
[2018-05-04] MEDS: HYDROCODONE/APAP 5/325MG TABLET PO PRN ×3 (00:51→21:17)
[2018-05-04] MEDS: VANCOMYCIN HCL 1,000 MG in DEXTROSE 5 % IN WATER 250 ML IVPB SCH ×6 (05:18→21:11)
[2018-05-04] MEDS: PANTOPRAZOLE SODIUM 40 MG TABLET PO SCH (06:24)
[2018-05-04] MEDS: VANCOMYCIN HCL 500 MG in 0.9 % SODIUM CHLORIDE 100ML 100 ML IV SCH ×3 (06:25→22:21)
[2018-05-04 06:31] LABS: BASO % 0.2 % (0-6); EOS % 2.3 % (0-6); GRAN % 71.4 % (47-80); HEMATOCRIT 38.8 % (42.0-52.0); HEMOGLOBIN 13.3 gm/dl (14.0-18.0); LYMPH % 12.8 % (16-45); MEAN CELL VOLUME 99.5 fl (81-97); MEAN CORPUSCULAR HEMOGLOBIN 34.1 pg (27-33); MEAN CORPUSCULAR HGB CONC 34.3 g/dl (32-36); MEAN PLATELET VOLUME 9.1 fl (7.4-10.4); MONO % 13.3 % (0-9); PLATELET COUNT 233 K/uL (130-400); RED CELL DISTRIBUTION WIDTH 13.4 % (11.5-14.5); WHITE BLOOD COUNT W/O DIFF 5.7 K/uL (4.2-12.2)
[2018-05-04 06:48] LABS: BLOOD UREA NITROGEN 10 mg/dL (8-23); CREATININE 0.6 mg/dL (0.7-1.2); EST GLOMERULAR FILTRATION RATE > 60 mL/min; GLUCOSE,RANDOM 139 mg/dL (74-109)
[2018-05-04] MEDS: PHENYTOIN SODIUM EXTENDED 100 MG CAPSULE PO SCH ×2 (10:15→21:13)
[2018-05-04] MEDS: CEPHALEXIN 500 MG CAPSULE PO SCH ×4 (10:16→21:13)
[2018-05-04] MEDS: ESCITALOPRAM 10 MG TABLET PO SCH (10:16)
[2018-05-04] MEDS: PRIMIDONE 250 MG PO SCH ×2 (10:17→21:14)
[2018-05-04] MEDS: ATENOLOL 50 MG TABLET PO SCH (10:17)
--- NOTE | 2018-05-04 16:26 | Physician Progress Note ---
Subjective - Date Date of Physician Progress Note: 05/04/18 - Subjective Subjective Comment: The patient says that his swelling in his right hand has gone down but that he still has pain in his elbow and forearm. He as no other concerns at this time. Location: Right, Upper extremity Radiation: Non-Radiating Severity scale (1-10): 5 Quality: Aching Consistency: Constant Improves with: Medication Worsens with: Movement Objective - Vital Signs Vital Signs: Vital Signs - Last 24 Hrs Temp Pulse Resp BP Pulse Ox 05/04/18 09:00 67 18 05/04/18 07:00 98.1 F 67 18 139/73 100 05/03/18 23:34 97.7 F 69 16 147/75 94 L 05/03/18 19:26 18 05/03/18 17:54 72 20 - General General Appearance: Alert, Oriented x3, Cooperative, Mild distress - Head Head exam: Normal inspection - Eye Eye exam: Normal appearance, PERRL Pupils: Normal accommodation - ENT ENT exam: Normal exam, Mucous membranes moist, Normal external ear exam, Normal orophraynx, TM's normal bilaterally Ear exam: Normal external inspection. negative: External canal tenderness Nasal Exam: Normal inspection. negative: Discharge, Sinus tenderness Mouth exam: Normal external inspection, Tongue normal Teeth exam: Normal inspection. negative: Dental caries Throat exam: Normal inspection. negative: Tonsillar erythema, Tonsillar exudate - Neck Neck exam: Normal inspection, Full ROM. negative: Tenderness - Respiratory Respiratory exam: Normal lung sounds bilaterally. negative: Respiratory distress - Cardiovascular Cardiovascular Exam: Regular rate, Normal rhythm, Normal heart sounds Peripheral Pulses: 3+: Radial (R), Radial (L), Dorsalis Pedis (R), Dorsalis Pedis (L) - GI/Abdominal GI/Abdominal exam: Soft, Normal bowel sounds. negative: Tenderness - Rectal Rectal exam: Deferred - exam: Deferred - Extremities Extremities exam: Normal inspection, Full ROM, Normal capillary refill, Tenderness (forearm tenderness and erythema) - Back Back exam: Reports: Normal inspection, Full ROM. Denies: Muscle spasm, Rash noted, Tenderness - Neurological Neurological exam: Alert, Normal gait, Oriented X3, Reflexes normal - Psychiatric Psychiatric exam: Normal affect, Normal mood - Skin Skin exam: Dry, Intact, Normal color, Warm Assessment and Plan - Assessment and Plan (1) Cellulitis Current Visit: Yes Status: Acute Qualifiers: Site of cellulitis: extremity Site of cellulitis of extremity: upper extremity Laterality: right Qualified Code(s): L03.113 - Cellulitis of right upper limb Base Code: L03.90 - CELLULITIS, UNSPECIFIED Comment: - 05/04/18: - Cellulitis of the right upper ext with extension to the wrist. - Kelfex 500mg PO QID, Vancomycin 1gm Q8H - [place] 5/325mg Q6H PRN for pain. (2) Seizure disorder Current Visit: Yes Status: Acute Base Code: G40.909 - EPILEPSY, UNSP, NOT INTRACTABLE, WITHOUT STATUS EPILEPTICUS Comment: 05/04/18: - resume Primidone 20mg daily, Phenytoin 200mg BID. (3) Depression with anxiety Current Visit: Yes Status: Acute Base Code: F41.8 - OTHER SPECIFIED ANXIETY DISORDERS Comment: 05/04/18: - resume Lexapro 20mg, and Xanax 0.25mg TID PRN. (4) DVT prophylaxis Current Visit: Yes Status: Acute Base Code: [id number] - Comment: 05/04/18: - no anticoagulant. Ambulation ad yannick. (5) Full code status Current Visit: Yes Status: Acute Base Code: Z78.9 - OTHER SPECIFIED HEALTH STATUS Comment: 05/04/18: - pt is full code - Disposition Disposition: D/c home tomorrow with PO antibiotics. Results - Labs Result Diagrams: 05/04/18 06:23 05/04/18 06:23 Labs Last 24 Hours: Laboratory Results - last 24 hr 05/04/18 05/04/18 05/04/18 06:00 06:23 06:23 WBC 5.7 RBC 3.90 L Hgb 13.3 L Hct 38.8 L MCV 99.5 H MCH 34.1 H MCHC 34.3 RDW 13.4 Plt Count 233 MPV 9.1 Gran % 71.4 Lymphocytes % 12.8 L Monocytes % 13.3 H Eosinophils % 2.3 Basophils % 0.2 Sodium 137 Potassium 3.6 Chloride 98 Carbon Dioxide 27.0 Anion Gap 12.0 BUN Cancelled 10 Creatinine Cancelled 0.6 L Estimated GFR Cancelled > 60 Random Glucose 139 H Calcium 8.8 Vancomycin Trough 05/04/18 13:58 WBC RBC Hgb Hct MCV MCH MCHC RDW Plt Count MPV Gran % Lymphocytes % Monocytes % Eosinophils % Basophils % Sodium Potassium Chloride Carbon Dioxide Anion Gap BUN Creatinine Estimated GFR Random Glucose Calcium Vancomycin Trough 13.3 H DVT/PE Assessment - Risk for VTE Risk for VTE: No Risk Level: Low Risk Assessment Date: 05/03/18 Risk Assessment Time: 17:03 VTE Orders Placed or Will Be Placed: Yes - Active Medicaitons Current Medications: Current Medications Acetaminophen (Tylenol 325mg) 650 mg PO Q6H PRN PRN Reason: PAIN - MILD(1-4)/FEVER Hydrocodone Bitart/Acetaminophen ([place] 5mg/325mg) 1 each PO Q6H PRN PRN Reason: PAIN - SEVERE (8-10) Last Admin: 05/04/18 13:33 Dose: 1 each Alprazolam (Xanax) 0.25 mg PO TID PRN PRN Reason: ANXIETY Atenolol (Tenormin) 50 mg PO DAILY [facility] Last Admin: 05/04/18 10:17 Dose: 50 mg Cephalexin HCl (Keflex) 500 mg PO QID [facility] Stop: 05/13/18 18:01 Last Admin: 05/04/18 14:07 Dose: 500 mg Escitalopram Oxalate (Lexapro) 20 mg PO DAILY [facility] Last Admin: 05/04/18 10:16 Dose: 20 mg Sodium Chloride () 1,000 mls @ 25 mls/hr IV .Q24H PRN PRN Reason: LARGE VOLUME IV Last Admin: 05/03/18 16:24 Dose: 25 mls/hr Vancomycin HCl 1,000 mg/ (Dextrose) 250 mls @ 250 mls/60 min IVPB Q8H [facility] Stop: 05/08/18 22:01 Last Admin: 05/04/18 13:57 Dose: 250 mls/60 min Vancomycin HCl 500 mg/ Sodium (Chloride) 100 mls @ 200 mls/hr IV Q8H [facility] Last Infusion: 05/04/18 06:55 Dose: Infused Non-Formulary Medication (Primidone [Mysoline]) 250 mg PO BID [facility] Last Admin: 05/04/18 10:17 Dose: 250 mg Non-Formulary Medication (Primidone [Mysoline]) 125 mg PO 1600 [facility] Last Admin: 05/03/18 17:41 Dose: 125 mg Pantoprazole Sodium (Protonix) 40 mg PO DAILYAC [facility] Last Admin: 05/04/18 06:24 Dose: 40 mg Phenytoin Sodium (Dilantin) 200 mg PO BID [facility] Last Admin: 05/04/18 10:15 Dose: 200 mg AMI Plan - Labs Result Diagrams: 05/04/18 06:23 05/04/18 06:23
[2018-05-04] MEDS: PRIMIDONE 125 MG PO SCH (16:51)
[2018-05-05] MEDS: VANCOMYCIN HCL 1,000 MG in DEXTROSE 5 % IN WATER 250 ML IVPB SCH ×4 (05:00→15:02)
[2018-05-05] MEDS: PANTOPRAZOLE SODIUM 40 MG TABLET PO SCH (06:03)
[2018-05-05] MEDS: VANCOMYCIN HCL 500 MG in 0.9 % SODIUM CHLORIDE 100ML 100 ML IV SCH (06:05)
[2018-05-05 06:57] LABS: BLOOD UREA NITROGEN 8 mg/dL (8-23); CREATININE 0.6 mg/dL (0.7-1.2); EST GLOMERULAR FILTRATION RATE > 60 mL/min
[2018-05-05] MEDS: ESCITALOPRAM 10 MG TABLET PO SCH (09:28)
[2018-05-05] MEDS: PRIMIDONE 250 MG PO SCH (09:32)
[2018-05-05] MEDS: PHENYTOIN SODIUM EXTENDED 100 MG CAPSULE PO SCH (09:33)
[2018-05-05] MEDS: CEPHALEXIN 500 MG CAPSULE PO SCH ×2 (09:33→13:25)
[2018-05-05] MEDS: ATENOLOL 50 MG TABLET PO SCH (09:33)
--- NOTE | 2018-05-05 10:44 | Discharge Summary ---
Providers Discharge Summary Date: 05/05/18 Date of admission: 05/03/18 15:27 Attending physician: BRIAN CHAVEZ Primary care physician: Fernando Parra Physical Exam - Vital Signs Vital Signs: Vital Signs - Last 24 Hrs Temp Pulse Resp BP Pulse Ox 05/05/18 06:49 98.0 F 64 17 166/75 96 05/04/18 23:00 98.3 F 60 16 134/74 97 05/04/18 20:40 18 05/04/18 15:00 97.8 F 57 L 18 144/82 99 - General General Appearance: Alert, Oriented x3, Cooperative, Mild distress - Head Head exam: Normal inspection - Eye Eye exam: Normal appearance, PERRL Pupils: Normal accommodation - ENT ENT exam: Normal exam, Mucous membranes moist, Normal external ear exam, Normal orophraynx, TM's normal bilaterally Ear exam: Normal external inspection. negative: External canal tenderness Nasal Exam: Normal inspection. negative: Discharge, Sinus tenderness Mouth exam: Normal external inspection, Tongue normal Teeth exam: Normal inspection. negative: Dental caries Throat exam: Normal inspection. negative: Tonsillar erythema, Tonsillar exudate - Neck Neck exam: Normal inspection, Full ROM. negative: Tenderness - Respiratory Respiratory exam: Normal lung sounds bilaterally. negative: Respiratory distress - Cardiovascular Cardiovascular Exam: Regular rate, Normal rhythm, Normal heart sounds Peripheral Pulses: 3+: Radial (R), Radial (L), Dorsalis Pedis (R), Dorsalis Pedis (L) - GI/Abdominal GI/Abdominal exam: Soft, Normal bowel sounds. negative: Tenderness - Rectal Rectal exam: Deferred - exam: Deferred - Extremities Extremities exam: Normal inspection, Full ROM, Normal capillary refill, Tenderness (forearm tenderness and erythema) - Back Back exam: Reports: Normal inspection, Full ROM. Denies: Muscle spasm, Rash noted, Tenderness - Neurological Neurological exam: Alert, Normal gait, Oriented X3, Reflexes normal - Psychiatric Psychiatric exam: Normal affect, Normal mood - Skin Skin exam: Dry, Intact, Normal color, Warm Hospitalization - Hospitalization Admission Diagnosis: cellulitis of the right extremity hand and wrist ,. failed outpatient therapy - Problem List/Discharge Diagnosis (1) Cellulitis Status: Acute Discharge Diagnosis: Site of cellulitis: extremity Site of cellulitis of extremity: upper extremity Laterality: right Qualified Code(s): L03.113 - Cellulitis of right upper limb Base Code: L03.90 - CELLULITIS, UNSPECIFIED Comment: - 05/05/18: - Cellulitis of the right upper ext with extension to the wrist - resolving. - xray of right elbow - negative for fracture or joint inflammation. - Kelfex 500mg PO QID, Vancomycin 1gm Q8H - Plains 5/325mg Q6H PRN for pain. (2) Seizure disorder Status: Acute Base Code: G40.909 - EPILEPSY, UNSP, NOT INTRACTABLE, WITHOUT STATUS EPILEPTICUS Comment: 05/05/18: - resume Primidone 20mg daily, Phenytoin 200mg BID. (3) Depression with anxiety Status: Acute Base Code: F41.8 - OTHER SPECIFIED ANXIETY DISORDERS Comment: 05/05/18: - resume Lexapro 20mg, and Xanax 0.25mg TID PRN. (4) DVT prophylaxis Status: Acute Base Code: [id number] - Comment: 05/05/18: - no anticoagulant. Ambulation ad yannick. (5) Full code status Status: Acute Base Code: Z78.9 - OTHER SPECIFIED HEALTH STATUS Comment: 05/05/18: - pt is full code - Disposition D/c home tomorrow with PO antibiotics. - Hospitalization Course Disposition: Home, Self-Care Hospital Course: Mr. Cardenas is a 67 y/o male with right arm pain and swelling since last Tuesday. The patient says he initially felt a sharp elbow pain which gradually radiated to his hand. He then began to notice swelling of his right hand and redness. 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 He came into the Ed on Tuesday and was started on Keflex which he has been taking but his arm did not improve. On presentation to the ED today the patient still reports stiffness, pain and swelling of the right forearm with extension to his hand. Vitals on admission: BP: 138/79 HR: RR: 18 T: 98 Sats: 95% RA 05/05/18: The patient's swelling has dramatically improved over the past 24 hours. He is able to move his wrist and fingers but still experiencing some pain in the elbow. Elbow xray shows mild soft tissue swelling but no fracture or joint inflammation. The xray was reviewed with Orthopedic surgery to confirm that there are no acute findings. The patient has remained afebrile, and has no elevation in white count. Procedures: Imaging and X-Rays 05/05/18 10:36 ELBOW, RIGHT 2 VIEWS [RAD] Routine Abnormal Labs: Abnormal Lab Results 05/03/18 05/03/18 05/04/18 Range/Units 13:10 13:10 06:23 RBC 4.16 L 3.90 L (4.40-5.70) M/uL Hgb 13.3 L (14.0-18.0) gm/dl Hct 40.8 L 38.8 L (42.0-52.0) % MCV 98.1 H 99.5 H (81-97) fl MCH 34.6 H 34.1 H (27-33) pg Lymphocytes % 9.0 L 12.8 L (16-45) % Monocytes % 14.7 H 13.3 H (0-9) % Chloride 96 L (98-107) mmol/L Creatinine 0.6 L (0.7-1.2) mg/dL Random Glucose (74-109) mg/dL Uric Acid 3.20 L (3.4-7.0) mg/dL C-Reactive Protein 15.65 H (<0.5) mg/dL Vancomycin Trough (5.0-10.0) ug/mL 05/04/18 05/04/18 05/05/18 Range/Units 06:23 13:58 06:15 RBC (4.40-5.70) M/uL Hgb (14.0-18.0) gm/dl Hct (42.0-52.0) % MCV (81-97) fl MCH (27-33) pg Lymphocytes % (16-45) % Monocytes % (0-9) % Chloride (98-107) mmol/L Creatinine 0.6 L 0.6 L (0.7-1.2) mg/dL Random Glucose 139 H (74-109) mg/dL Uric Acid (3.4-7.0) mg/dL C-Reactive Protein (<0.5) mg/dL Vancomycin Trough 13.3 H (5.0-10.0) ug/mL Condition at Discharge: (1) Good Discharge Medications - Discharge Medications Prescriptions: Clindamycin HCl [Cleocin HCl] 300 mg PO BID #6 capsule Hydrocodone/APAP 5/325Mg [Plains 5Mg/325Mg] 1 each PO Q6H #10 tab Home Medications: Ambulatory Orders Atenolol [Tenormin] 50 mg PO DAILY 10/05/14 [Last Taken 05/03/18] Escitalopram Oxalate [Lexapro] 20 mg PO DAILY 10/05/14 [Last Taken 05/03/18] Primidone [Mysoline] 250 mg PO BID 10/05/14 [Last Taken 05/03/18] Alprazolam [Xanax] 0.25 mg PO TID tab 06/21/16 [Last Taken 05/03/18] Phenytoin Sodium Extended [Dilantin] 200 mg PO BID cap 06/21/16 [Last Taken ] Omeprazole Magnesium [Prilosec] 20 mg PO BID packet 08/31/16 [Last Taken ] Clindamycin HCl [Cleocin HCl] 300 mg PO BID #6 capsule 05/05/18 [Last Taken Unknown] Hydrocodone/APAP 5/325Mg [Plains 5Mg/325Mg] 1 each PO Q6H #10 tab 05/05/18 [Last Taken Unknown] Discharge Plan - Discharge Instructions Activity at Discharge: Increase Activity as Tolerated Diet at Discharge: Regular Diet Instructions: Cellulitis (DC) Additional Instructions: 2 Activity: Increase Activity as Tolerated 2 Diet: Regular Diet 2 Consults: [] 2 Follow Up: Appt with Dr. Vishnu Cooney 05/12 at 11:20AM at [facility]. Enter through Door C.] 2 Dressing/Wound Care: (Type) (Change) 2 Additional: [] Take Clindamycin 300mg twice daily for the next 3 days. Continue to take Plains 5/325mg every 6 hours as needed for pain. If your swelling does not improve or the pain worsens please return to the ED or [facility]. Quality Measures - Quality Measures Quality Measures: Advance Directives, Documentation of Current Medications in Medical Record, Elder Maltreatment Screen and Follow-Up Plan, Screening for High Blood Pressure and F/U Documented - Current Medications Quality Measure: Measure #130: Documentation of Current Medications Documentation of Current Medications: <Current Medications Documented/Reviewed> [G8445] - Blood Pressure Screening Quality Measure: Screening for High Blood Pressure and Follow-Up Documented Does Patient Have Any of the Following: No Blood Pressure Classification: Pre-Hypertensive BP Reading Systolic Measurement: 134 Diastolic Measurement: 74 Screening for High Blood Pressure: < Pre-Hypertensive BP, F/U Documented > [ G1271] Pre-Hypertensive Follow-up Interventions: Follow-up with rescreen every year., Lifestyle modifications. Lifestyle Modification: Weight Reduction, Dietary Approaches to Stop Hypertension (DASH) Eating Plan - Advance Directives Quality Measure: Measure #47: Care Plan Advance Directives Established: No Advance Directives Information Provided To Patient: No Advance Directives on File: No Living Will: No Power of Ship Steward: No Advance Care Planning: <Care Plan/Decision Maker Documented; Discussed & Documented> [[id number]] - Elder Abuse Suspicion Index Screening: Elder Abuse Suspicion Index Screening Rely on people for bathing, dressing, shopping, banking, etc: No Prevented from getting food, clothes, medication, etc: No Made to feel shamed or threatened by someone: No Forced to sign papers or use money against will: No Feel afraid, touched in ways not wanted or hurt physically: No Poor eye contact, withdrawn, malnourished, cuts or bruises: No Screening Result: Negative result EASI Reference Information: Jessica BENSON, Krishna C, Richardson D, David M.Development and validation of a tool to assist physicians identification of elder abuse: The Elder Abuse Suspicion Index (EASI ). Journal of Elder Abuse and Neglect, 2008; 20 (3): 276-300. - Elder Maltreatment Screen Quality Measures: Elder Maltreatment Screen and Follow-Up Plan Elder Maltreatment Screen: <Negative, No Follow-Up Plan Required> [G8734]
[2018-05-05] MEDS: HYDROCODONE/APAP 5/325MG TABLET PO PRN (11:18)
--- NOTE | 2018-05-07 20:41 | RADIOLOGY REPORT ---
EXAM: ELBOW, RIGHT 2 VIEWS HISTORY: PAIN. TECHNIQUE: Two views of the right elbow were performed. FINDINGS: There is calcification of the lateral collateral ligament. No evidence of fracture or dislocation. There is dorsal soft tissue swelling. IMPRESSION: NO EVIDENCE OF FRACTURE. THERE IS DORSAL SOFT TISSUE SWELLING. JOB NUMBER: [id number] [facility]
== END 2018-05-05 14:10 | disposition home or self-care (01) | DRG 603 ==
LOC: ER 12:30 → MEDSURG 15:27
PROVIDERS: ADMIT Internal Medicine; ATTEND Internal Medicine
DX: L03.113 Cellulitis of right upper limb (principal); Z16.30 Resistance to unspecified antimicrobial drugs; M16.0 Bilateral primary osteoarthritis of hip; G40.909 Epilepsy, unspecified, not intractable, without status epilepticus; F41.8 Other specified anxiety disorders
CPT/HCPCS: 84550; 85025; 86140; 80048; J3370; 80202; 82565; 84520; 99223; 99233; 99239; J2930; J7050; J7060